=== PATIENT | male | born 2000 | race Caucasian/White ===

== ENCOUNTER → 2021-05-21 | Outpatient (CLI) | payer BC ==
[~2021-05-21] MED LIST: ASPIRIN81 MG PO; BACTRIM DS TAB1 EACH PO; IBUPROFEN600 MG PO; PERCOCET 5-3251 EACH PO; PHENERGAN 12.12.5 M1 PO; STOOL SOFTENER250 MG PO
== END ==
LOC: EXRD 09:28
DX: R22.42 Localized swelling, mass and lump, left lower limb (principal); M79.662 Pain in left lower leg
CPT/HCPCS: 73590

== ENCOUNTER 2021-05-26 02:50 | Emergency (ER) | payer BC ==
[2021-05-26] MEDS ORDERED: Voltaren Gel 1 % TOP (03:18)
== END 2021-05-26 03:44 | disposition home or self-care (01) ==
LOC: ER1 02:50
DX: M79.605 Pain in left leg (principal); I10 Essential (primary) hypertension
CPT/HCPCS: 96372; 99283; J1885

== ENCOUNTER → 2021-06-04 | Outpatient (CLI) | payer BC ==
[~2021-06-04] MED LIST changes: +Voltaren Gel 1 % TOP
== END ==
LOC: US 10:30
DX: R22.40 Localized swelling, mass and lump, unspecified lower limb (principal); M79.609 Pain in unspecified limb
CPT/HCPCS: 76882

== ENCOUNTER → 2022-03-06 | Outpatient (CLI) | payer BC | LOC: KOH-I 15:17 | DX: N50.819 Testicular pain, unspecified (principal) | CPT/HCPCS: 76870 ==